=== PATIENT | male | born 1985 | race Caucasian/White ===

== ENCOUNTER 2020-10-10 14:11 | Inpatient (IN) | payer OTHER ==
[2020-10-10] MEDS ORDERED: Dexamethasone 10 MG/ML VIAL ONE (16:30)
[2020-10-10] MEDS ORDERED: Albuterol Sulfate 2.5 mg/3 ml Neb NEB PRN (18:14)
--- NOTE | 2020-10-10 18:18 | PDOC.HHP ---
Hospitalist HPI - History of Present Illness Shortness of breath History of Present Illness: Patient is a 35-year-old morbidly obese male who presented here today through the emergency department. Patient reports that 11 days ago, in the evening he developed some mild nasal symptoms. By the following day he had generalized fevers, chills, malaise. He had some mild shortness of breath. He subsequently tested positive on October 02, 8 days ago. Since then he has continued to have some mild respiratory symptoms. He did reach out to his PCP Tanika Roa. She gave him a steroid shot and Decadron p.o. Yesterday his symptoms were worse and he presented to the emergency department and [place]. There he had a CT scan of the chest which was consistent with Covid findings. He had an O2 sat of 91% on room air. He was given additional steroids and azithromycin and discharged home after receiving some bronchodilators and demonstrating improved oxygen saturation. Today the patient symptoms were worse. He has a pulse oximeter at home and was monitoring his oxygen. He reports his levels were 85- 90 range. He subsequently called an ambulance because of shortness of breath. He reports that he was placed on oxygen and his sats were in the low 90s. He received a breathing treatment in route. He still feels slightly short of breath but feels better on the oxygen. Patient also reports that he has been experiencing some right upper quadrant abdominal pain since he arrived in the emergency department. It is constant. He denies having had any nausea or changes in his bowel habits. ED Course: The emergency department the patient maintained his oxygen saturation on nasal cannula. He has an elevated white count likely related to steroids. He was given dexamethasone and IV Levaquin. Hospitalist ROS - Review of Systems Constitutional: reports: fever, chills, malaise Respiratory: reports: cough, shortness of breath (Seems to be worse when supine), SOB with excertion. denies: hemoptysis Gastrointestinal: reports: abdominal pain. denies: nausea, vomiting, diarrhea, constipation Skin: denies: rash All other systems reviewed; all pertinent +/- noted in HPI/Subj - Medication Medications: Clonazepam 1 mg as needed Fluoxetine 60 mg Hospitalist History - Past Medical History Source: patient Cardiac: reports: no pertinent history Pulmonary: reports: no pertinent history SIZE MARKER: reports: no pertinent history Gastrointestinal: reports: no pertinent history Heme/Onc: reports: no pertinent history Hepatobiliary: reports: no pertinent history Psych: reports: no pertinent history Musculoskeletal: reports: no pertinent history Rheumatologic: reports: no pertinent history Infectious Disease: reports: no pertinent history ENT: reports: no pertinent history Renal/: reports: Other (Kidney stones) Endocrine: reports: no pertinent history Dermatology: reports: no pertinent history - Past Surgical History Past Surgical History: reports: Other (transurethral stone retrieval, vasectomy) - Family History Family History: reports: cerebrovascular accident (Mother), hypertension (Mother) - Social History Smoking Status: Never smoker Alcohol: reports: None Drugs: reports: none Living Situation: With Family - Exam General Appearance: NAD, awake alert General - other findings: Morbidly obese. Neck: supple, symmetric, no JVD, no thyromegaly, no lymphadenopathy, no carotid bruit Heart: RRR, no murmur, no gallops, no rubs, normal peripheral pulses Respiratory: CTAB, no wheezes, no rales, no ronchi, normal chest expansion, ta chypneic (Mild) Gastrointestinal: soft, non-distended, normal bowel sounds, no palpable masses, no hepatomegaly, no splenomegaly, no bruit, tender to palpation (Right upper qu adrant with minimal voluntary guarding. Possible rebound.) Extremities: no cyanosis, no clubbing, no edema Skin: normal turgor Neurological: no focal deficits Musculoskeletal: normal tone, normal strength Psychiatric: normal affect, normal behavior, A&O x 3 Hospitalist Results - Radiology Interpretation CT scan - chest Status: image reviewed by me, report reviewed by me (Image from 10/09/2020 indicates diffuse peripheral infiltrates consistent with Covid findings.) Hospitalist H&P A/P - Problem (1) Acute respiratory failure with hypoxia Code(s): J96.01 - ACUTE RESPIRATORY FAILURE WITH HYPOXIA Status: Acute (2) Pneumonia due to COVID-19 virus Code(s): U07.1 - COVID-19; J12.82 - PNEUMONIA DUE TO CORONAVIRUS DISEASE 2019 Status: Acute (3) Right upper quadrant abdominal pain Code(s): R10.11 - RIGHT UPPER QUADRANT PAIN Status: Acute (4) Morbid obesity Code(s): E66.01 - MORBID (SEVERE) OBESITY DUE TO EXCESS CALORIES Status: Acute (5) History of anxiety Code(s): Z86.59 - PERSONAL HISTORY OF OTHER MENTAL AND BEHAVIORAL DISORDERS Status: Acute (6) History of OCD (obsessive compulsive disorder) Code(s): Z86.59 - PERSONAL HISTORY OF OTHER MENTAL AND BEHAVIORAL DISORDERS Status: Acute - Plan Plan: Acute hypoxic respiratory failure secondary to COVID-19 pneumonia: Patient has borderline saturations. At home he appeared to have hypoxia. That is based on his self-assessment with a pulse oximeter. Continue oxygen keep his sats above 92%. Reassess off oxygen with room air and ambulation in the morning. Dexamethasone. Patient is outside the window for remdesivir. Vitamin C, vitamin D, zinc. Lovenox for DVT prophylaxis. Patient had no evidence of pulmonary embolus on his CT scan from 10/09/2020. Patient is primarily at risk due to his underlying morbid obesity. Check inflammatory markers. Right upper quadrant abdominal pain: Unclear etiology. Patient has no rash over this area to suggest zoster. Certainly concerning for gallbladder. Obtain right upper quadrant ultrasound. Obtain CMP to assess his liver function test. History of anxiety/OCD: Continue with his home dose of fluoxetine and as needed Klonopin.
[2020-10-10] MEDS ORDERED: Albuterol 200 PUFF (6.7GM INHALER) INH PRN (18:24)
[2020-10-10 19:36] LABS: #Lymphocytes 0.7 thou/uL (1.20-3.40); #Monocytes 0.2 thou/uL (0.11-0.59); #Neutrophils 18.5 thou/uL (1.40-6.50); %Eosinophils 0.1 % (0.0-10.0); %Lymphocytes 3.8 % (21.0-51.0); %Monocytes 0.9 % (0.0-10.0); %Neutrophils 95.2 % (42.0-75.0); Hemoglobin 14.5 g/dL (14.0-18.0); Mean Corpuscular HGB CONC 32.7 g/dL (32.0-36.0); Mean Corpuscular Hemoglobin 29.2 pg (27.0-31.0); Mean Corpuscular Volume 89.4 fL (78.0-98.0); Mean Platelet Volume 6.3 fL (7.4-10.4); Platelet Count 370 thou/uL (130-400); RBC Distribution Width 12.9 % (11.5-14.5); Red Blood Cell (RBC) Count 4.95 mill/uL (4.70-6.10); White Blood Cell (WBC) Count 19.4 thou/uL (4.8-10.8)
[2020-10-10 19:46] LABS: ALT (SGPT) 19 U/L (8-55); AST (SGOT) 17 U/L (5-34); Albumin 3.9 g/dL (3.5-5.0); Alkaline Phosphatase 74 U/L (40-110); Anion Gap 15 mmol/L (10-20); BUN (Urea Nitrogen) 14 mg/dL (8.9-20.6); Bilirubin, Total 0.3 mg/dL (0.2-1.2); Calc. Creatinine Clearance 0 mL/min (70-130); Carbon Dioxide 23 mmol/L (22-29); Chloride 104 mmol/L (98-107); Globulin 3.7 g/dL (2.4-3.5); Glucose 160 mg/dL (70-105); Potassium 4.3 mmol/L (3.5-5.1); Protein, Total 7.6 g/dL (6.0-8.3); Sodium 138 mmol/L (136-145)
[2020-10-10] MEDS: Acetaminophen 325 MG TAB PO PRN (21:31)
[2020-10-11] MEDS ORDERED: Ibuprofen 200 MG TAB PO SCH (01:15)
[2020-10-11] MEDS ORDERED: Ibuprofen 200 MG TAB ONE (02:09)
[2020-10-11 06:56] LABS: Anion Gap 15 mmol/L (10-20); BUN (Urea Nitrogen) 18 mg/dL (8.9-20.6); Calc. Creatinine Clearance 0 mL/min (70-130); Calcium 9.4 mg/dL (7.8-10.44); Carbon Dioxide 26 mmol/L (22-29); Chloride 103 mmol/L (98-107); Glucose 121 mg/dL (70-105); Potassium 4.5 mmol/L (3.5-5.1); Sodium 139 mmol/L (136-145)
[2020-10-11 07:23] LABS: Hemoglobin 14.8 g/dL (14.0-18.0); Mean Corpuscular Volume 90.6 fL (78.0-98.0); Mean Platelet Volume 6.2 fL (7.4-10.4); Platelet Count 412 thou/uL (130-400); RBC Distribution Width 12.8 % (11.5-14.5); White Blood Cell (WBC) Count 22.3 thou/uL (4.8-10.8)
[2020-10-11 07:41] LABS: Band 17 % (5-11); Lymphocytes 2 % (21-51); MDiff Complete? YES; Monocytes 5 % (0-10); Neutrophil 72 % (42-75); Platelet Morphology Comment Appears Increased; RBC Morphology Normal; Reactive Lymphocytes 4 % (0-10)
--- NOTE | 2020-10-11 08:12 | ULT ---
EXAM: US Gallbladder RUQ CLINICAL HISTORY: Right upper quadrant pain. COMPARISON: None. FINDINGS: Pancreas: The head and proximal pancreatic body have a normal echotexture. The remainder the pancrea s is obscured by bowel Liver:Heterogeneous echotexture liver which may be due to hepatic steatosis or hepatocellular disease . Subsequent limited evaluation for hepatic masses and intrahepatic biliary dilatation. Right hepatic lobe measures 18.2 cm. Gallbladder: No sonographic evidence of cholelithiasis, gallbladder wall thickening or pericholecysti c fluid. Ch's sign:Negative Portal Vein: Patent. Appropriate directional flow Bile ducts: 0.4 cm common bile duct diameter Right kidney: No hydronephrosis. Right kidney measures 12.0 cm in length. IMPRESSION: 1. Heterogeneous echotexture liver likely due to areas of hepatic steatosis and fatty sparing. 2. No sonographic evidence of cholelithiasis or cholecystitis
[2020-10-11] MEDS: FLUoxetine HCl 20 MG CAP PO SCH (08:31)
[2020-10-11] MEDS: Zinc Sulfate 220 MG CAP PO SCH (08:31)
[2020-10-11] MEDS: Ascorbic Acid 500 mg Chewable Tablet PO SCH (08:31)
[2020-10-11] MEDS: Enoxaparin Sodium 40 MG/0.4 ML SYRINGE SC SCH (08:31)
[2020-10-11] MEDS: Cholecalciferol 1,000 UNITS (25 MCG) TAB PO SCH (08:31)
[2020-10-11] MEDS: Dexamethasone 6 MG in Sodium Chloride 0.9% 50 ML IVPB SCH (08:37)
[2020-10-11] MEDS: clonazePAM 1 MG TAB PO PRN (09:34)
[2020-10-11 11:28] VITALS: BMI 40.6
[2020-10-11] MEDS: Acetaminophen 325 MG TAB PO PRN (14:24)
--- NOTE | 2020-10-11 15:17 | PDOC.HOSPP ---
- Subjective Encounter Date: 10/11/20 Encounter Time: 08:30 Subjective: is comfortable on nasal canula 3 lts has not ambulated due to short length of his Oxygen tubing - Objective Vital Signs & Weight: Vital Signs (12 hours) Temp Pulse Resp BP BP Pulse Ox 10/11/20 11:33 98.7 F 77 20 138/86 91 L 10/11/20 08:00 93 L 10/11/20 07:29 98.1 F 78 18 127/84 91 L 10/11/20 06:00 98.0 F 73 20 125/81 90 L Weight Admit Weight 317 lb Weight 317 lb Result Diagrams: 10/11/20 06:26 10/11/20 06:26 Hospitalist ROS - Medication Medications: Active Medications Generic Name Dose Route Start Last Admin Trade Name Freq PRN Reason Stop Dose Admin Acetaminophen 650 mg 10/10/20 18:12 10/11/20 14:24 Acetaminophen 325 Mg Tab PO 650 mg Q4H PRN Administration Headache/Fever/Mild Pain (1-3) Ascorbic Acid 1,000 mg 10/11/20 09:00 10/11/20 08:31 Ascorbic Acid 500 Mg Chewable Tablet PO 1,000 mg DAILY BRANDON Administration Cholecalciferol 1,000 units 10/11/20 09:00 10/11/20 08:31 Cholecalciferol 1,000 Units (25 Mcg) Tab PO 1,000 units DAILY BRANDON Administration Clonazepam 1 mg 10/10/20 18:33 10/11/20 09:34 Clonazepam 1 Mg Tab PO 1 mg BIDPRN PRN Administration Anxiety Enoxaparin Sodium 40 mg 10/11/20 09:00 10/11/20 08:31 Enoxaparin Sodium 40 Mg/0.4 Ml Syringe SC 40 mg 0900 BRANDON Administration Fluoxetine HCl 60 mg 10/11/20 09:00 10/11/20 08:31 Fluoxetine Hcl 20 Mg Cap PO 60 mg DAILY BRANDON Administration Dexamethasone 6 mg/ Sodium 50.6 mls @ 100 mls/hr 10/11/20 09:00 10/11/20 08:37 Chloride IVPB 50.6 mls DAILY BRANDON Administration Pantoprazole Sodium 40 mg 10/11/20 09:00 10/11/20 08:32 Pantoprazole 40 Mg Tab PO 40 mg DAILY BRANDON Administration Zinc Sulfate 220 mg 10/11/20 09:00 10/11/20 08:31 Zinc Sulfate 220 Mg Cap PO 220 mg DAILY BRANDON Administration - Exam General Appearance: awake alert Eye: PERRL, anicteric sclera ENT: no oropharyngeal lesions, moist mucosa Neck: supple, no JVD Heart: RRR, no murmur Respiratory: no wheezes, no rales, rhonchi Gastrointestinal: soft, non-tender, non-distended, normal bowel sounds Extremities: no cyanosis, no edema Neurological: cranial nerve grossly intact, no focal deficits Psychiatric: normal affect, A&O x 3 Hosp A/P (1) Pneumonia due to COVID-19 virus Code(s): U07.1 - COVID-19; J12.82 - PNEUMONIA DUE TO CORONAVIRUS DISEASE 2018 Status: Acute (2) Acute respiratory failure with hypoxia Code(s): J96.01 - ACUTE RESPIRATORY FAILURE WITH HYPOXIA Status: Acute (3) History of OCD (obsessive compulsive disorder) Code(s): Z86.59 - PERSONAL HISTORY OF OTHER MENTAL AND BEHAVIORAL DISORDERS Status: Chronic (4) History of anxiety Code(s): Z86.59 - PERSONAL HISTORY OF OTHER MENTAL AND BEHAVIORAL DISORDERS Status: Chronic (5) Morbid obesity Code(s): E66.01 - MORBID (SEVERE) OBESITY DUE TO EXCESS CALORIES Status: Chronic - Plan is on nasal canula O2, onset of symptoms now 12 days, on dexamethasone will trend his crp to see if he can be dc'd on nasal canula home O2 continue home dose of prozac and klonopin his OCD symptoms have been stable from last 4 yrs after being on meds he works as a teacher in [employer], 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 gave updates to who is covid +ve as well.
[2020-10-11] MEDS: Melatonin 3 MG TAB PO PRN (23:07)
[2020-10-12] MEDS ORDERED: Dextrose 5% in Water 1,000 ML IV PRN (06:37)
[2020-10-12] MEDS ORDERED: Dextrose 50% Abboject 50 ML SYRINGE SLOW IVP PRN (06:37)
[2020-10-12] MEDS ORDERED: HumaLOG 300 UNITS/3 ML VIAL SC PRN ×2 (06:37)
[2020-10-12 08:24] LABS: #Basophils 0.1 thou/uL (0.0-0.2); #Neutrophils 13.7 thou/uL (1.40-6.50); %Basophils 0.4 % (0.0-1.0); %Eosinophils 0.1 % (0.0-10.0); %Lymphocytes 11.7 % (21.0-51.0); %Monocytes 6.2 % (0.0-10.0); %Neutrophils 81.6 % (42.0-75.0); Hemoglobin 14.8 g/dL (14.0-18.0); Mean Corpuscular HGB CONC 33.1 g/dL (32.0-36.0); Mean Corpuscular Hemoglobin 29.7 pg (27.0-31.0); Mean Corpuscular Volume 89.7 fL (78.0-98.0); Platelet Count 453 thou/uL (130-400); Red Blood Cell (RBC) Count 4.97 mill/uL (4.70-6.10); White Blood Cell (WBC) Count 16.8 thou/uL (4.8-10.8)
[2020-10-12] MEDS: FLUoxetine HCl 20 MG CAP PO SCH (08:24)
[2020-10-12] MEDS: Cholecalciferol 1,000 UNITS (25 MCG) TAB PO SCH (08:24)
[2020-10-12] MEDS: Zinc Sulfate 220 MG CAP PO SCH (08:24)
[2020-10-12] MEDS: Enoxaparin Sodium 40 MG/0.4 ML SYRINGE SC SCH (08:24)
[2020-10-12] MEDS: Ascorbic Acid 500 mg Chewable Tablet PO SCH (08:24)
[2020-10-12 09:06] LABS: Anion Gap 14 mmol/L (10-20); BUN (Urea Nitrogen) 21 mg/dL (8.9-20.6); Calc. Creatinine Clearance 255 mL/min (70-130); Calcium 8.8 mg/dL (7.8-10.44); Carbon Dioxide 27 mmol/L (22-29); Chloride 102 mmol/L (98-107); Glucose 81 mg/dL (70-105); Potassium 3.9 mmol/L (3.5-5.1); Sodium 139 mmol/L (136-145)
[2020-10-12] MEDS: Dexamethasone 6 MG in Sodium Chloride 0.9% 50 ML IVPB SCH (09:43)
[2020-10-12] MEDS: clonazePAM 1 MG TAB PO PRN (09:43)
[2020-10-12] MEDS: Acetaminophen 325 MG TAB PO PRN (09:43)
--- NOTE | 2020-10-12 14:53 | PDOC.HOSPP ---
- Subjective Encounter Date: 10/12/20 Encounter Time: 08:40 Subjective: no new complaints, breathing comfortable on nasal canula is amb in room, eating well - Objective Vital Signs & Weight: Vital Signs (12 hours) Temp Pulse Resp BP Pulse Ox 10/12/20 11:00 98.3 F 70 20 132/80 95 10/12/20 08:00 93 L 10/12/20 07:08 98.7 F 73 19 119/63 88 L 10/12/20 04:57 97.6 F 86 18 134/86 90 L Weight Admit Weight 317 lb Weight 317 lb Result Diagrams: 10/12/20 08:07 10/12/20 08:07 Hospitalist ROS - Medication Medications: Active Medications Generic Name Dose Route Start Last Admin Trade Name Freq PRN Reason Stop Dose Admin Acetaminophen 650 mg 10/10/20 18:12 10/12/20 09:43 Acetaminophen 325 Mg Tab PO 650 mg Q4H PRN Administration Headache/Fever/Mild Pain (1-3) Ascorbic Acid 1,000 mg 10/11/20 09:00 10/12/20 08:24 Ascorbic Acid 500 Mg Chewable Tablet PO 1,000 mg DAILY BRANDON Administration Cholecalciferol 1,000 units 10/11/20 09:00 10/12/20 08:24 Cholecalciferol 1,000 Units (25 Mcg) Tab PO 1,000 units DAILY BRANDON Administration Clonazepam 1 mg 10/10/20 18:33 10/12/20 09:43 Clonazepam 1 Mg Tab PO 1 mg BIDPRN PRN Administration Anxiety Enoxaparin Sodium 40 mg 10/11/20 09:00 10/12/20 08:24 Enoxaparin Sodium 40 Mg/0.4 Ml Syringe SC 40 mg 0900 BRANDON Administration Fluoxetine HCl 60 mg 10/11/20 09:00 10/12/20 08:24 Fluoxetine Hcl 20 Mg Cap PO 60 mg DAILY BRANDON Administration Dexamethasone 6 mg/ Sodium 50.6 mls @ 100 mls/hr 10/11/20 09:00 10/12/20 09:43 Chloride IVPB 50.6 mls DAILY BRANDON Administration Melatonin 3 mg 10/11/20 22:50 10/11/20 23:07 Melatonin 3 Mg Tab PO 3 mg HSPRN PRN Administration Insomnia Pantoprazole Sodium 40 mg 10/11/20 09:00 10/12/20 08:24 Pantoprazole 40 Mg Tab PO 40 mg DAILY BRANDON Administration Zinc Sulfate 220 mg 10/11/20 09:00 10/12/20 08:24 Zinc Sulfate 220 Mg Cap PO 220 mg DAILY BRANDON Administration - Exam General Appearance: awake alert Eye: PERRL, anicteric sclera ENT: no oropharyngeal lesions, moist mucosa Neck: supple, no JVD Heart: RRR, no murmur Respiratory: no wheezes, rales, rhonchi Gastrointestinal: soft, non-tender, non-distended, normal bowel sounds Extremities: no cyanosis, no edema Neurological: cranial nerve grossly intact, no focal deficits Psychiatric: normal affect, A&O x 3 Hosp A/P (1) Pneumonia due to COVID-19 virus Code(s): U07.1 - COVID-19; J12.82 - PNEUMONIA DUE TO CORONAVIRUS DISEASE 2019 Status: Acute (2) Acute respiratory failure with hypoxia Code(s): J96.01 - ACUTE RESPIRATORY FAILURE WITH HYPOXIA Status: Acute (3) History of OCD (obsessive compulsive disorder) Code(s): Z86.59 - PERSONAL HISTORY OF OTHER MENTAL AND BEHAVIORAL DISORDERS Status: Chronic (4) History of anxiety Code(s): Z86.59 - PERSONAL HISTORY OF OTHER MENTAL AND BEHAVIORAL DISORDERS Status: Chronic (5) Morbid obesity Code(s): E66.01 - MORBID (SEVERE) OBESITY DUE TO EXCESS CALORIES Status: Chronic - Plan is on nasal canula O2, onset of symptoms now 12 days, on dexamethasone will trend his crp to see if he can be dc'd on nasal canula home O2, currently on almost 5-6lts, will need to taper and see if he does well. 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 gave updates to who is covid +ve as well 10/11, 10/12.
[2020-10-13 06:21] LABS: #Lymphocytes 1.9 thou/uL (1.20-3.40); #Neutrophils 14.4 thou/uL (1.40-6.50); %Basophils 0.1 % (0.0-1.0); %Eosinophils 0.1 % (0.0-10.0); %Lymphocytes 11.2 % (21.0-51.0); %Monocytes 5.8 % (0.0-10.0); %Neutrophils 82.8 % (42.0-75.0); Hemoglobin 15.6 g/dL (14.0-18.0); Mean Corpuscular HGB CONC 30.3 g/dL (32.0-36.0); Mean Corpuscular Hemoglobin 27.1 pg (27.0-31.0); Mean Corpuscular Volume 89.5 fL (78.0-98.0); Mean Platelet Volume 5.9 fL (7.4-10.4); Platelet Count 513 thou/uL (130-400); RBC Distribution Width 12.8 % (11.5-14.5); Red Blood Cell (RBC) Count 5.74 mill/uL (4.70-6.10); White Blood Cell (WBC) Count 17.4 thou/uL (4.8-10.8)
[2020-10-13 06:27] LABS: Hemoglobin A1c 5.7 % (4.0-6.0)
[2020-10-13 06:42] LABS: Anion Gap 17 mmol/L (10-20); BUN (Urea Nitrogen) 22 mg/dL (8.9-20.6); CRP (Inflammatory) 3.16 mg/dL (= or < 0.5); Calc. Creatinine Clearance 265 mL/min (70-130); Calcium 9.2 mg/dL (7.8-10.44); Carbon Dioxide 24 mmol/L (22-29); Chloride 101 mmol/L (98-107); Glucose 85 mg/dL (70-105); Iron 100 ug/dL (65-175); Iron Binding Capacity, Total 225 mcg/dL (261-462); Potassium 4.3 mmol/L (3.5-5.1); Sodium 138 mmol/L (136-145)
[2020-10-13 06:44] LABS: Iron 100 ug/dL (65-175); Iron Binding Capacity, Total 224 mcg/dL (261-462)
[2020-10-13] MEDS: Zinc Sulfate 220 MG CAP PO SCH (08:43)
[2020-10-13] MEDS: Cholecalciferol 1,000 UNITS (25 MCG) TAB PO SCH (08:43)
[2020-10-13] MEDS: Ascorbic Acid 500 mg Chewable Tablet PO SCH (08:43)
[2020-10-13] MEDS: FLUoxetine HCl 20 MG CAP PO SCH (08:43)
[2020-10-13] MEDS: Enoxaparin Sodium 40 MG/0.4 ML SYRINGE SC SCH (08:44)
[2020-10-13] MEDS: Dexamethasone 6 MG in Sodium Chloride 0.9% 50 ML IVPB SCH (08:44)
[2020-10-13] MEDS: clonazePAM 1 MG TAB PO PRN (12:54)
--- NOTE | 2020-10-13 14:52 | PDOC.HOSPP ---
- Subjective Encounter Date: 10/13/20 Encounter Time: 08:30 Subjective: breathing better, is amb in room wo sob and on nasal canula - Objective Vital Signs & Weight: Vital Signs (12 hours) Temp Pulse Resp BP Pulse Ox 10/13/20 12:00 76 20 139/89 98 10/13/20 08:27 97.6 F 111 H 20 141/84 H 90 L 10/13/20 08:00 97.6 F 111 H 20 141/84 H 95 10/13/20 04:00 98.4 F 83 20 117/77 93 L Weight Admit Weight 317 lb Weight 317 lb Result Diagrams: 10/13/20 06:10 10/13/20 06:10 Additional Labs: Accuchecks 10/13/20 10/13/20 10/12/20 11:44 04:43 23:40 POC Glucose 134 H 94 99 10/12/20 10/12/20 16:42 11:25 POC Glucose 121 H 111 H Hospitalist ROS - Medication Medications: Active Medications Generic Name Dose Route Start Last Admin Trade Name Freq PRN Reason Stop Dose Admin Acetaminophen 650 mg 10/10/20 18:12 10/12/20 09:43 Acetaminophen 325 Mg Tab PO 650 mg Q4H PRN Administration Headache/Fever/Mild Pain (1-3) Ascorbic Acid 1,000 mg 10/11/20 09:00 10/13/20 08:43 Ascorbic Acid 500 Mg Chewable Tablet PO 1,000 mg DAILY BRANDON Administration Cholecalciferol 1,000 units 10/11/20 09:00 10/13/20 08:43 Cholecalciferol 1,000 Units (25 Mcg) Tab PO 1,000 units DAILY BRANDON Administration Clonazepam 1 mg 10/10/20 18:33 10/13/20 12:54 Clonazepam 1 Mg Tab PO 1 mg BIDPRN PRN Administration Anxiety Enoxaparin Sodium 40 mg 10/11/20 09:00 10/13/20 08:44 Enoxaparin Sodium 40 Mg/0.4 Ml Syringe SC 40 mg 0900 BRANDON Administration Fluoxetine HCl 60 mg 10/11/20 09:00 10/13/20 08:43 Fluoxetine Hcl 20 Mg Cap PO 60 mg DAILY BRANDON Administration Dexamethasone 6 mg/ Sodium 50.6 mls @ 100 mls/hr 10/11/20 09:00 10/13/20 08:44 Chloride IVPB 50.6 mls DAILY BRANDON Administration Melatonin 3 mg 10/11/20 22:50 10/11/20 23:07 Melatonin 3 Mg Tab PO 3 mg HSPRN PRN Administration Insomnia Pantoprazole Sodium 40 mg 10/11/20 09:00 10/13/20 08:44 Pantoprazole 40 Mg Tab PO 40 mg DAILY BRANDON Administration Zinc Sulfate 220 mg 10/11/20 09:00 10/13/20 08:43 Zinc Sulfate 220 Mg Cap PO 220 mg DAILY BRANDON Administration - Exam General Appearance: awake alert Eye: PERRL, anicteric sclera ENT: no oropharyngeal lesions, moist mucosa Neck: supple, no JVD Heart: RRR, no murmur Respiratory: no wheezes, rales, rhonchi Gastrointestinal: soft, non-tender, non-distended, normal bowel sounds Extremities: no cyanosis, no edema Neurological: cranial nerve grossly intact, no focal deficits Psychiatric: normal affect, A&O x 3 Hosp A/P (1) Pneumonia due to COVID-19 virus Code(s): U07.1 - COVID-19; J12.82 - PNEUMONIA DUE TO CORONAVIRUS DISEASE 2019 Status: Acute (2) Acute respiratory failure with hypoxia Code(s): J96.01 - ACUTE RESPIRATORY FAILURE WITH HYPOXIA Status: Acute (3) History of OCD (obsessive compulsive disorder) Code(s): Z86.59 - PERSONAL HISTORY OF OTHER MENTAL AND BEHAVIORAL DISORDERS Status: Chronic (4) History of anxiety Code(s): Z86.59 - PERSONAL HISTORY OF OTHER MENTAL AND BEHAVIORAL DISORDERS Status: Chronic (5) Morbid obesity Code(s): E66.01 - MORBID (SEVERE) OBESITY DUE TO EXCESS CALORIES Status: Chronic - Plan is on nasal canula O2, onset of symptoms now 12 days, on dexamethasone his nasal canula is around 3 lts this am with good spo2, will observe overnight and see if he holds up, crp is trending down has severely elevated ferritin with unclear reason, CRISTAL with reflex pending. 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 gave updates to who is covid +ve as well 10/11, 10/12, 10/13.
[2020-10-14] MEDS: Dexamethasone 6 MG in Sodium Chloride 0.9% 50 ML IVPB SCH (09:58)
[2020-10-14] MEDS: Ascorbic Acid 500 mg Chewable Tablet PO SCH (09:58)
[2020-10-14] MEDS: Enoxaparin Sodium 40 MG/0.4 ML SYRINGE SC SCH (09:58)
[2020-10-14] MEDS: Cholecalciferol 1,000 UNITS (25 MCG) TAB PO SCH (09:59)
[2020-10-14] MEDS: FLUoxetine HCl 20 MG CAP PO SCH (09:59)
[2020-10-14] MEDS: Zinc Sulfate 220 MG CAP PO SCH (09:59)
--- NOTE | 2020-10-14 16:07 | PDOC.HOSPP ---
- Subjective Encounter Date: 10/14/20 Encounter Time: 16:05 Subjective: Mr. Adair was seen today in follow-up of respiratory failure due to COVID pneumonia. He says he is feeling better. He has been ambulating in his room, without difficulty. He denies chest pain, and diarrhea. - Objective Vital Signs & Weight: Vital Signs (12 hours) Temp Pulse Resp BP Pulse Ox 10/14/20 08:02 97.9 F 73 18 146/86 H 95 10/14/20 08:00 95 Weight Admit Weight 317 lb Weight 317 lb I&O: 10/13/20 10/14/20 10/15/20 06:59 06:59 06:59 Intake Total 480 Balance 480 Result Diagrams: 10/13/20 06:10 10/13/20 06:10 Additional Labs: Accuchecks 10/14/20 10/13/20 05:32 19:56 POC Glucose 106 H 145 H Hospitalist ROS - Medication Medications: Active Medications Generic Name Dose Route Start Last Admin Trade Name Freq PRN Reason Stop Dose Admin Acetaminophen 650 mg 10/10/20 18:12 10/12/20 09:43 Acetaminophen 325 Mg Tab PO 650 mg Q4H PRN Administration Headache/Fever/Mild Pain (1-3) Ascorbic Acid 1,000 mg 10/11/20 09:00 10/14/20 09:58 Ascorbic Acid 500 Mg Chewable Tablet PO 1,000 mg DAILY BRANDON Administration Cholecalciferol 1,000 units 10/11/20 09:00 10/14/20 09:59 Cholecalciferol 1,000 Units (25 Mcg) Tab PO 1,000 units DAILY BRANDON Administration Clonazepam 1 mg 10/10/20 18:33 10/13/20 12:54 Clonazepam 1 Mg Tab PO 1 mg BIDPRN PRN Administration Anxiety Enoxaparin Sodium 40 mg 10/11/20 09:00 10/14/20 09:58 Enoxaparin Sodium 40 Mg/0.4 Ml Syringe SC 40 mg 0900 BRANDON Administration Fluoxetine HCl 60 mg 10/11/20 09:00 10/14/20 09:59 Fluoxetine Hcl 20 Mg Cap PO 60 mg DAILY BRANDON Administration Dexamethasone 6 mg/ Sodium 50.6 mls @ 100 mls/hr 10/11/20 09:00 10/14/20 09:58 Chloride IVPB 50.6 mls DAILY BRANDON Administration Melatonin 3 mg 10/11/20 22:50 10/11/20 23:07 Melatonin 3 Mg Tab PO 3 mg HSPRN PRN Administration Insomnia Pantoprazole Sodium 40 mg 10/11/20 09:00 10/14/20 09:59 Pantoprazole 40 Mg Tab PO 40 mg DAILY BRANDON Administration Zinc Sulfate 220 mg 10/11/20 09:00 10/14/20 09:59 Zinc Sulfate 220 Mg Cap PO 220 mg DAILY BRANDON Administration - Exam Eye: PERRL, anicteric sclera Heart: RRR, no murmur, no gallops, no rubs, normal peripheral pulses Respiratory: no wheezes, no ronchi, rales (at both bases) Gastrointestinal: soft, non-tender, non-distended, normal bowel sounds, no palpable masses, no hepatomegaly, no splenomegaly Extremities: no cyanosis, no edema (pulses are diminished, but palpable, no lesions on the feet or toes.) Hosp A/P (1) Pneumonia due to COVID-19 virus Code(s): U07.1 - COVID-19; J12.82 - PNEUMONIA DUE TO CORONAVIRUS DISEASE 2019 Status: Acute (2) Acute respiratory failure with hypoxia Code(s): J96.01 - ACUTE RESPIRATORY FAILURE WITH HYPOXIA Status: Acute (3) Elevated ferritin level Code(s): R79.89 - OTHER SPECIFIED ABNORMAL FINDINGS OF BLOOD CHEMISTRY Status: Acute (4) History of OCD (obsessive compulsive disorder) Code(s): Z86.59 - PERSONAL HISTORY OF OTHER MENTAL AND BEHAVIORAL DISORDERS Status: Chronic - Plan * Acute respiratory failure due to COVID pneumonia- improving * Continue Decadron IV * Continue incetive spirometry * Elevated ferritin- will need outpatient work-up- abdominal ultrasound noted * Hopefully home on Home oxygen on Friday
[2020-10-14] MEDS ORDERED: Sodium Chloride 0.65% Nasal 44 ML BOT EA NARE PRN (16:09)
[2020-10-14 16:30] LABS: ANA Symphony (Qualitative) Negative (Negative); ANA Symphony (Quantitative) 0.2 Ratio (< 0.7 Negative); dsDNA IgG Antibody Less than 0.5 IU/mL (<10 Negative)
[2020-10-14] MEDS: clonazePAM 1 MG TAB PO PRN (19:46)
[2020-10-14] MEDS: Melatonin 3 MG TAB PO PRN (21:12)
[2020-10-15] MEDS: Dexamethasone 6 MG in Sodium Chloride 0.9% 50 ML IVPB SCH (09:57)
[2020-10-15] MEDS: FLUoxetine HCl 20 MG CAP PO SCH (09:57)
[2020-10-15] MEDS: Zinc Sulfate 220 MG CAP PO SCH (09:57)
[2020-10-15] MEDS: Ascorbic Acid 500 mg Chewable Tablet PO SCH (09:57)
[2020-10-15] MEDS: Enoxaparin Sodium 40 MG/0.4 ML SYRINGE SC SCH (09:58)
[2020-10-15] MEDS: Cholecalciferol 1,000 UNITS (25 MCG) TAB PO SCH (09:58)
[2020-10-15 10:30] LABS: Anion Gap 14 mmol/L (10-20); BUN (Urea Nitrogen) 19 mg/dL (8.9-20.6); Calc. Creatinine Clearance 282 mL/min (70-130); Calcium 8.9 mg/dL (7.8-10.44); Carbon Dioxide 25 mmol/L (22-29); Chloride 101 mmol/L (98-107); Glucose 107 mg/dL (70-105); Magnesium 1.7 mg/dL (1.6-2.6); Potassium 3.8 mmol/L (3.5-5.1); Sodium 136 mmol/L (136-145)
[2020-10-15] MEDS: clonazePAM 1 MG TAB PO PRN ×2 (13:06→20:39)
--- NOTE | 2020-10-15 17:45 | PDOC.HOSPP ---
- Subjective Encounter Date: 10/15/20 Encounter Time: 17:43 Subjective: Mr. Puentes was seen today in follow-up of COVID pneumonia and respiratory failure. He says he is breathing much better. He notes an occasional cough. - Objective Vital Signs & Weight: Vital Signs (12 hours) Temp Pulse Resp BP Pulse Ox 10/15/20 12:00 66 20 147/86 H 93 L 10/15/20 08:15 97.8 F 53 L 20 123/84 94 L 10/15/20 08:00 94 L Weight Admit Weight 317 lb Weight 317 lb I&O: 10/14/20 10/15/20 10/16/20 06:59 06:59 06:59 Intake Total 3000 Balance 3000 Result Diagrams: 10/13/20 06:10 10/15/20 09:49 Additional Labs: Accuchecks 10/15/20 10/15/20 10/15/20 16:36 11:02 05:49 POC Glucose 140 H 151 H 86 10/14/20 19:50 POC Glucose 148 H Hospitalist ROS - Medication Medications: Active Medications Generic Name Dose Route Start Last Admin Trade Name Freq PRN Reason Stop Dose Admin Acetaminophen 650 mg 10/10/20 18:12 10/12/20 09:43 Acetaminophen 325 Mg Tab PO 650 mg Q4H PRN Administration Headache/Fever/Mild Pain (1-3) Ascorbic Acid 1,000 mg 10/11/20 09:00 10/15/20 09:57 Ascorbic Acid 500 Mg Chewable Tablet PO 1,000 mg DAILY BRANDON Administration Cholecalciferol 1,000 units 10/11/20 09:00 10/15/20 09:58 Cholecalciferol 1,000 Units (25 Mcg) Tab PO 1,000 units DAILY BRANDON Administration Clonazepam 1 mg 10/10/20 18:33 10/15/20 13:06 Clonazepam 1 Mg Tab PO 1 mg BIDPRN PRN Administration Anxiety Enoxaparin Sodium 40 mg 10/11/20 09:00 10/15/20 09:58 Enoxaparin Sodium 40 Mg/0.4 Ml Syringe SC 40 mg 0900 BRANDON Administration Fluoxetine HCl 60 mg 10/11/20 09:00 10/15/20 09:57 Fluoxetine Hcl 20 Mg Cap PO 60 mg DAILY BRANDON Administration Melatonin 3 mg 10/11/20 22:50 10/14/20 21:12 Melatonin 3 Mg Tab PO 3 mg HSPRN PRN Administration Insomnia Pantoprazole Sodium 40 mg 10/11/20 09:00 10/15/20 09:58 Pantoprazole 40 Mg Tab PO 40 mg DAILY BRANDON Administration Zinc Sulfate 220 mg 10/11/20 09:00 10/15/20 09:57 Zinc Sulfate 220 Mg Cap PO 220 mg DAILY BRANDON Administration - Exam Eye: PERRL, anicteric sclera Heart: RRR, no murmur, no gallops, no rubs, normal peripheral pulses Respiratory: no wheezes, no ronchi, rales (at both bases) Gastrointestinal: soft, non-tender, non-distended, normal bowel sounds, no palpable masses, no hepatomegaly Extremities: no cyanosis (pulses are diminished but palpable), no edema Hosp A/P (1) Pneumonia due to COVID-19 virus Code(s): U07.1 - COVID-19; J12.82 - PNEUMONIA DUE TO CORONAVIRUS DISEASE 2019 Status: Acute (2) Acute respiratory failure with hypoxia Code(s): J96.01 - ACUTE RESPIRATORY FAILURE WITH HYPOXIA Status: Acute (3) Elevated ferritin level Code(s): R79.89 - OTHER SPECIFIED ABNORMAL FINDINGS OF BLOOD CHEMISTRY Status: Acute (4) History of OCD (obsessive compulsive disorder) Code(s): Z86.59 - PERSONAL HISTORY OF OTHER MENTAL AND BEHAVIORAL DISORDERS Status: Chronic - Plan * Acute respiratory failure due to COVID pneumonia- improving * He has lost IV access- can leave IV out, as it is anticipated that he will be discharged soon. Decadron can be transitioned to p.o. * Continue incetive spirometry * Elevated ferritin- will need outpatient work-up- abdominal ultrasound noted * Hopefully home on Home oxygen on Friday
[2020-10-15] MEDS: Melatonin 3 MG TAB PO PRN (20:39)
[2020-10-16] MEDS: Zinc Sulfate 220 MG CAP PO SCH (08:19)
[2020-10-16] MEDS: FLUoxetine HCl 20 MG CAP PO SCH (08:19)
[2020-10-16] MEDS: Enoxaparin Sodium 40 MG/0.4 ML SYRINGE SC SCH (08:19)
[2020-10-16] MEDS: Ascorbic Acid 500 mg Chewable Tablet PO SCH (08:19)
[2020-10-16] MEDS: Dexamethasone 4 MG TAB PO SCH (08:20)
[2020-10-16] MEDS: Cholecalciferol 1,000 UNITS (25 MCG) TAB PO SCH (08:21)
[2020-10-16] MEDS ORDERED: Dexamethasone 4 mg/ml Vial SLOW IVP SCH (09:00)
[2020-10-16] MEDS: clonazePAM 1 MG TAB PO PRN ×2 (12:55→20:35)
--- NOTE | 2020-10-16 17:02 | PDOC.HOSPP ---
- Subjective Encounter Date: 10/16/20 Encounter Time: 17:00 Subjective: Mr. Puentes was seen today in follow-up of COVID pneumonia. He does not have any complaints. He is breathing much better. - Objective Vital Signs & Weight: Vital Signs (12 hours) Temp Pulse Resp BP BP BP Pulse Ox 10/16/20 15:53 99.1 F 73 16 120/60 95 10/16/20 11:51 97.9 F 66 16 106/74 96 10/16/20 08:00 95 10/16/20 07:33 97.9 F 52 L 16 119/77 95 Weight Admit Weight 317 lb Weight 317 lb I&O: 10/15/20 10/16/20 10/17/20 06:59 06:59 06:59 Intake Total 3000 720 Balance 3000 720 Result Diagrams: 10/13/20 06:10 10/15/20 09:49 Additional Labs: Accuchecks 10/16/20 10/16/20 10/16/20 15:58 11:53 05:38 POC Glucose 136 H 108 H 82 10/15/20 20:41 POC Glucose 137 H Hospitalist ROS - Medication Medications: Active Medications Generic Name Dose Route Start Last Admin Trade Name Freq PRN Reason Stop Dose Admin Acetaminophen 650 mg 10/10/20 18:12 10/12/20 09:43 Acetaminophen 325 Mg Tab PO 650 mg Q4H PRN Administration Headache/Fever/Mild Pain (1-3) Ascorbic Acid 1,000 mg 10/11/20 09:00 10/16/20 08:19 Ascorbic Acid 500 Mg Chewable Tablet PO 1,000 mg DAILY BRANDON Administration Cholecalciferol 1,000 units 10/11/20 09:00 10/16/20 08:21 Cholecalciferol 1,000 Units (25 Mcg) Tab PO 1,000 units DAILY BRANDON Administration Clonazepam 1 mg 10/10/20 18:33 10/16/20 12:55 Clonazepam 1 Mg Tab PO 1 mg BIDPRN PRN Administration Anxiety Dexamethasone 6 mg 10/16/20 09:00 10/16/20 08:20 Dexamethasone 4 Mg Tab PO 6 mg QAM BRANDON Administration Enoxaparin Sodium 40 mg 10/11/20 09:00 10/16/20 08:19 Enoxaparin Sodium 40 Mg/0.4 Ml Syringe SC 40 mg 0900 BRANDON Administration Fluoxetine HCl 60 mg 10/11/20 09:00 10/16/20 08:19 Fluoxetine Hcl 20 Mg Cap PO 60 mg DAILY BRANDON Administration Melatonin 3 mg 10/11/20 22:50 10/15/20 20:39 Melatonin 3 Mg Tab PO 3 mg HSPRN PRN Administration Insomnia Pantoprazole Sodium 40 mg 10/11/20 09:00 10/16/20 08:21 Pantoprazole 40 Mg Tab PO 40 mg DAILY BRANDON Administration Zinc Sulfate 220 mg 10/11/20 09:00 10/16/20 08:19 Zinc Sulfate 220 Mg Cap PO 220 mg DAILY BRANDON Administration - Exam Eye: PERRL, anicteric sclera Heart: RRR, no murmur, no gallops, no rubs, normal peripheral pulses Respiratory: no wheezes, no ronchi, rales (at both bases) Gastrointestinal: soft, non-tender, non-distended, normal bowel sounds, no palpable masses, no hepatomegaly Extremities: no cyanosis (good distal pulses bilaterally), no edema Hosp A/P (1) Pneumonia due to COVID-19 virus Code(s): U07.1 - COVID-19; J12.82 - PNEUMONIA DUE TO CORONAVIRUS DISEASE 2019 Status: Acute (2) Acute respiratory failure with hypoxia Code(s): J96.01 - ACUTE RESPIRATORY FAILURE WITH HYPOXIA Status: Acute (3) Elevated ferritin level Code(s): R79.89 - OTHER SPECIFIED ABNORMAL FINDINGS OF BLOOD CHEMISTRY Status: Acute (4) History of OCD (obsessive compulsive disorder) Code(s): Z86.59 - PERSONAL HISTORY OF OTHER MENTAL AND BEHAVIORAL DISORDERS Status: Chronic - Plan * Acute respiratory failure due to COVID pneumonia- improving * Home oxygen has been delivered * Stable for discharge home
[2020-10-16] MEDS: Melatonin 3 MG TAB PO PRN (20:34)
[2020-10-17] MEDS: Zinc Sulfate 220 MG CAP PO SCH (08:04)
[2020-10-17] MEDS: Ascorbic Acid 500 mg Chewable Tablet PO SCH (08:04)
[2020-10-17] MEDS: Dexamethasone 4 MG TAB PO SCH (08:04)
[2020-10-17] MEDS: Enoxaparin Sodium 40 MG/0.4 ML SYRINGE SC SCH (08:04)
[2020-10-17] MEDS: FLUoxetine HCl 20 MG CAP PO SCH (08:04)
[2020-10-17] MEDS: Cholecalciferol 1,000 UNITS (25 MCG) TAB PO SCH (08:05)
[2020-10-17 11:42] VITALS: BP 128/82; TEMP 98
--- NOTE | 2020-10-17 19:22 | DIS ---
DATE OF ADMISSION: 10/10/2020 DATE OF DISCHARGE: 10/17/2020 DISCHARGE DISPOSITION: Home. DISCHARGE DIAGNOSES: 1. Acute respiratory failure with hypoxemia. 2. COVID-19 pneumonia. 3. Obesity. 4. History of obsessive-compulsive disorder. 5. Generalized anxiety. DISCHARGE MEDICATIONS: Include; 1. Decadron 6 mg p.o. daily for 4 days. 2. Pantoprazole 40 mg daily. 3. Vitamin C 1000 mg daily. 4. Vitamin D3 of 1000 units daily. 5. Zinc sulfate 220 mg p.o. daily. 6. Ibuprofen 800 mg q.8 as needed. 7. Fluoxetine 80 mg daily. 8. Clonazepam 2 mg b.i.d. 9. BuSpar 5 mg as needed. 10. Melatonin 3 mg as needed. IMAGING: The patient had a CT angiogram of the chest, which was negative for PE, but showed some moderately severe patchy infiltrates in all lobes consistent with COVID infection. The patient also had an abdominal ultrasound, which showed some heterogeneous echotexture of the liver and hepatic steatosis and fatty sparing. CODE STATUS: Full code. ALLERGIES: NO KNOWN DRUG ALLERGIES. HOSPITAL COURSE: Mr. Puentes is a pleasant 35-year-old gentleman, who was admitted to the hospital with shortness of breath and cough. He is COVID-19 positive at the time and was admitted. He was started on Decadron and monitored over the course of the next few days. Once it was felt that he was more or less stable or he was stable, he was able to be discharged home once supplemental oxygen was arranged. Also, it was noted that he had a very high ferritin level, which could be the result of the COVID infection, but could have other underlying etiologies. He was told to follow up with this in the outpatient setting. An abdominal ultrasound was done with the aforementioned results and he was also given warning signs about deep vein thrombosis and also warning signs of when to return to the emergency room if needed. Job ID: [id number]
== END 2020-10-17 16:14 | disposition home or self-care (01) | DRG 177 ==
LOC: ERS 14:11 → T4-A 16:33 → OBSVTOIN 16:33
PROVIDERS: ADMIT Internal Medicine; ATTEND Internal Medicine
PROC: 8E0ZXY6 Isolation (ICD-10-PCS; principal; 2020-10-10)
DX: U07.1 COVID-19 (principal); J12.82 Pneumonia due to coronavirus disease 2019; J96.01 Acute respiratory failure with hypoxia; Z68.41 Body mass index [BMI] 40.0-44.9, adult; E66.01 Morbid (severe) obesity due to excess calories; F42.9 Obsessive-compulsive disorder, unspecified; F41.1 Generalized anxiety disorder; R10.11 Right upper quadrant pain; R79.89 Other specified abnormal findings of blood chemistry; Z98.890 Other specified postprocedural states; Z79.899 Other long term (current) drug therapy; Z98.52 Vasectomy status
CPT/HCPCS: 36415; 36416; 76705; 80048; 80053; 82728; 83036; 83540; 83550; 83735; 85025; 85379; 86038; 86140; 86225; 87040; 96365; 96372; 96375; 96376; G0378; J1100; J1650; J1956; J8540

== ENCOUNTER 2021-10-05 17:11 | Outpatient (CLI) | payer OTHER ==
[2021-10-06 17:11] LABS: SARS-CoV-2 PCR by NAA Not Detected (NotDetected)
== END 2021-10-05 17:12 | disposition home or self-care (01) ==
LOC: LABBT 17:11
PROVIDERS: ATTEND Surgery
DX: Z01.812 Encounter for preprocedural laboratory examination (principal); Z20.822 Contact with and (suspected) exposure to COVID-19
CPT/HCPCS: U0003; U0005

== ENCOUNTER 2021-10-10 07:19 | Day surgery (SDC) | payer OTHER ==
[2021-10-05 11:51] VITALS: BMI 39.8
[2021-10-10] MEDS ORDERED: Bupivacaine 0.25% 10 ML VIAL ONE (08:28)
[2021-10-10] MEDS ORDERED: Xylocaine 1% w/ Epi 1:100K 10 ML VIAL ONE (08:28)
[2021-10-10] MEDS ORDERED: Fentanyl 100 MCG/2 ML VIAL ONE ×2 (08:35→10:24)
[2021-10-10] MEDS ORDERED: Midazolam HCl 2 mg/2 ml Vial ONE ×2 (08:35→08:52)
[2021-10-10] MEDS ORDERED: cefOXitin Sodium/Dextrose 2 GM/50 ML BAG ONE (08:52)
[2021-10-10] MEDS ORDERED: Ondansetron PF 4 MG/2 ML Vial ONE (09:03)
[2021-10-10] MEDS ORDERED: Dexamethasone 20 MG/5 ML VIAL ONE (09:03)
[2021-10-10] MEDS ORDERED: PROPOFOL 200 MG/20 ML VIAL ONE (09:03)
[2021-10-10] MEDS ORDERED: Rocuronium Bromide 10 MG/ML (10ML VIAL) ONE (09:03)
[2021-10-10] MEDS ORDERED: Lidocaine 1% PF 5 ML VIAL ONE (09:03)
[2021-10-10] MEDS ORDERED: Glycopyrrolate 0.2 MG/ML 5 ML SYRINGE ONE (09:03)
[2021-10-10] MEDS ORDERED: HYDROmorphone 0.5 MG/0.5 ML SYRINGE ONE (09:36)
[2021-10-10] MEDS ORDERED: HYDROcodone/Acetaminophen 5/325 mg Tablet ONE (12:05)
== END 2021-10-10 13:05 | disposition home or self-care (01) ==
LOC: SDC 07:19
PROVIDERS: ATTEND Surgery
PROC: 0FT44ZZ Resection of Gallbladder, Percutaneous Endoscopic Approach (ICD-10-PCS; principal; 2021-10-10)
DX: K81.1 Chronic cholecystitis (principal); K82.8 Other specified diseases of gallbladder; Z79.899 Other long term (current) drug therapy
CPT/HCPCS: 88304; C1713; J0694; J1170; J2250; J3010; S0020